=== PATIENT | male | born 1985 | race Caucasian/White ===

== ENCOUNTER 2017-03-08 02:20 | Emergency (ER) | payer OTHER ==
[2017-03-08 02:23] VITALS: BP 137/90
== END 2017-03-08 03:45 | disposition other institution (70) ==
LOC: ED 02:20
DX: Z02.89 Encounter for other administrative examinations (principal); G47.00 Insomnia, unspecified; F32.9 Major depressive disorder, single episode, unspecified; F43.10 Post-traumatic stress disorder, unspecified; F41.9 Anxiety disorder, unspecified